=== PATIENT | female | born 1960 | race African-American/Black ===

== ENCOUNTER 2018-09-23 08:19 | Emergency (ER) | payer OTHER ==
[2018-09-23 08:28] VITALS: BP 123/80; PULSE 84; TEMP 98.5; BMI 33.1
--- NOTE | 2018-09-23 08:44 | PDOC ---
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 She denies any wound to has her knees. Patient reported tiny abrasion to right hand from the ice. Denies any pain to hands reported mild pain and mild redness to anterior bilateral knee. Denies any other symptoms. Patient denies hitting head or loss of consciousness. Timing/Duration: 1 hour Past History - Past Medical History Allergies/Adverse Reactions: Allergies Allergy/AdvReac Type Severity Reaction Status Date / Time No Known Allergies Allergy Verified 09/23/18 08:21 Home Medications: Ambulatory Orders Rosuvastatin [Crestor -] 0 mg PO WE 12/05/13 Warfarin Sodium [Coumadin] 10 mg PO HS 12/05/13 COPD: No Diabetes: Yes Hypercholesterolemia: Yes Other medical history: protien c deficiency - Immunization History Immunization Up to Date: Yes - Suicide/Smoking/Psychosocial Hx Smoking History: Never smoked Have you smoked in the past 12 months: No Number of Cigarettes Smoked Daily: 0 Hx Alcohol Use: No Drug/Substance Use Hx: No Review of Systems - Review of Systems Able to Perform ROS?: Yes Is the patient limited Citizen [place] proficient: No Constitutional: No: Weakness HEENTM: No: Symptoms Reported Respiratory: No: Symptoms reported Cardiac (ROS): No: Symptoms Reported Musculoskeletal: Yes: Joint Pain (mild anterior b/l patella pain), Muscle Pain. No: Symptoms Reported, See HPI, Back Pain, Joint Swelling, Muscle Weakness, Joint Stiffness Integumentary: Yes: Erythema (mild to anterior b/l patella. L>R). No: Bruising , Lumps All Other Systems: Reviewed and Negative *Physical Exam - Vital Signs Last Vital Signs Temp Pulse Resp BP Pulse Ox 98.5 F 84 18 123/80 99 09/23/18 08:21 09/23/18 08:21 09/23/18 08:21 09/23/18 08:21 09/23/18 08:21 - Physical Exam Comments: 09/23/18 08:52 GENERAL: Well developed, well nourished. Awake and alert. No acute distress. CARDIOVASCULAR: Regular rate and rhythm. No murmurs, rubs, or gallops. PULMONARY: No evidence of respiratory distress. Lungs clear to auscultation bilaterally. No wheezing, rales or rhonchi. ABDOMINAL: Soft. Non-tender. Non-distended. No rebound or guarding. No organomegaly. Normoactive bowel sounds MUSCULOSKELETAL : mild tenderness over left anterior patellar with mild erythema to anterior patella on the left knee. No bruising or ecchymosis to skin. No tenderness to bilateral hands. No bony deformities SKIN: Warm and dry. Normal capillary refill. tiny piece of foreign material embedded in right hand in palm . NEUROLOGICAL: Alert, awake, appropriate. No motor deficits in the lower extremities. Gait is normal without ataxia. PSYCHIATRIC: Cooperative. Good eye contact. Appropriate mood and affect. General Appearance: Yes: Nourished, Appropriately Dressed. No: Apparent Distress Moderate Sedation - Procedure Monitoring Vital Signs: Procedure Monitoring Vital Signs Temperature 98.5 F 09/23/18 08:21 Pulse Rate 84 09/23/18 08:21 Respiratory Rate 18 09/23/18 08:21 Blood Pressure 123/80 09/23/18 08:21 O2 Sat by Pulse Oximetry (%) 99 09/23/18 08:21 Medical Decision Making - Medical Decision Making 09/23/18 08:55 Patient presented for evaluation status post trip on the ice and bracing herself with bilateral hands and knees and not falling. Exam significant for mild erythema to anterior patella of left knee with no swelling to bilateral knees and no erythema or ecchymosis to skin on bilateral knees or hands. Tiny foreign object embedded in right hand in the palm area. remove foreign object with Surgical scrub to hand. Patient is stable for discharge and reported no complaints. *DC/Admit/Observation/Transfer Diagnosis at time of Disposition: Hand abrasion, non-infected Contusion of knee, left Qualifiers: Encounter type: initial encounter Qualified Code(s): S80.02XA - Contusion of left knee, initial encounter Contusion of knee, right Qualifiers: Encounter type: initial encounter Qualified Code(s): S80.01XA - Contusion of right knee, initial encounter - Discharge Dispostion Disposition: HOME Condition at time of disposition: Stable Decision to Admit order: No - Referrals Referrals: Boone Alvarado MD [Primary Care Provider] - - Patient Instructions Printed Discharge Instructions: Contusion Additional Instructions: Take Tylenol as needed for pain. Apply cold compresses to bilateral knees to help prevent swelling today and switch to hot compresses tomorrow. Follow-up with PCP or [facility] as needed. - Post Discharge Activity
== END 2018-09-23 08:49 | disposition home or self-care (01) ==
LOC: JERFT 08:19
DX: S60.511A Abrasion of right hand, initial encounter (principal); S80.02XA Contusion of left knee, initial encounter; S80.01XA Contusion of right knee, initial encounter; W00.2XXA Other fall from one level to another due to ice and snow, initial encounter; Y93.01 Activity, walking, marching and hiking; Y92.238 Other place in hospital as the place of occurrence of the external cause; Y99.0 Civilian activity done for income or pay; D68.59 Other primary thrombophilia; E78.00 Pure hypercholesterolemia, unspecified; E11.9 Type 2 diabetes mellitus without complications; Z79.01 Long term (current) use of anticoagulants
CPT/HCPCS: 99281-25